=== PATIENT | male | born 1975 | race Caucasian/White ===

== ENCOUNTER 2021-11-07 09:53 | Emergency (ER) | payer OTHER ==
[~2021-11-07] VITALS: Ht 180.3 cm; Wt 102.1 kg
[2021-11-07] MEDS ORDERED: OMEPRAZOLE40 MG PO (10:23)
[2021-11-07] MEDS ORDERED: MESALAMINE E0.375 GM PO (10:27)
[2021-11-07 11:15] LABS: CALCIUM 8.9 mg/dL (8.5-10.1); CREATININE 0.9 mg/dL (0.6-1.3); POTASSIUM 3.8 mmol/L (3.5-5.1)
[2021-11-07 11:45] VITALS: BP 172/96
--- NOTE | 2021-11-08 11:15 | EKG ---
[place] [address] ELECTROCARDIOGRAM REPORT Name: MAR MINA Room: [facility]#: [id number] Admission: 11/07/21 Attend Phys: Discharge: 11/07/21 Date of : 79 Date of Service: 11/07/21 1035 Report #: [id number] THIS REPORT FOR: //name// 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1975 Requested By: Fan Perry Order Number: [id number] MD: Modesto Finney Measurements Intervals [place] Rate: 62 P: 56 WA: 161 QRS: 3 QRSD: 108 T: 33 QT: 396 QTc: 402 Interpretive Statements Sinus rhythm Abnormal R-wave progression, early transition No previous ECG available for comparison Electronically Signed On 11-08-2021 11:15:33 [employer] by Modesto Finney [email or web address] <ELECTRONICALLY SIGNED> By: Modesto Finney MD, [facility] 11/08/21 1115 1035 103 Modesto Finney MD, FAC /EPI
== END 2021-11-07 11:45 | disposition home or self-care (01) ==
LOC: M.ERS 09:53
PROVIDERS: Emergency Medicine Emergency Medical Services
DX: E87.5 Hyperkalemia (principal); Z71.1 Person with feared health complaint in whom no diagnosis is made; F41.9 Anxiety disorder, unspecified; K21.9 Gastro-esophageal reflux disease without esophagitis; Z79.899 Other long term (current) drug therapy